=== PATIENT | female | born 1985 | race Caucasian/White ===

== ENCOUNTER 2019-09-26 17:43 | Emergency (ER) | payer MEDICAID, SELFPAY ==
[2019-09-26 17:47] VITALS: PULSE 75; RESP 18; TEMP 37.1; O2SAT 99; BMI 52.1
--- NOTE | 2019-09-26 19:47 | W.ED.DENTAL ---
HPI - Dental/Oral General: Chief complaint: Dental/Oral Stated complaint: dental pain Time Seen by Provider: 09/26/19 19:32 Source: patient Mode of arrival: ambulatory Limitations: no limitations History of Present Illness: HPI Narrative: 33-year-old female states she is had left lower molar pain over the last 2 to 3 days. States she supposed to see a dentist but had to cancel due to COVID. She states she has had slight swelling. States pain is a 8 out of 10. Denies any fever. Denies any difficulty swallowing. Associated symptoms: Denies fever(s) Review of Systems Const: Denies: fever(s), chills, body aches or change in appetite Eyes: Denies: blurry vision or eye discomfort ENMT: Reports: dental pain; Denies: throat pain Card: Denies: chest pain Resp: Denies: dyspnea GI: Denies: abdominal pain, nausea, vomiting or diarrhea : Denies: dysuria Musc: Denies: neck pain or back pain Skin/Breast: Denies: rash Neuro: Denies: headache(s) Psych: Denies: depression Archie/Lymph: Denies: easy bruising All/Imm: Denies: urticaria Physical Exam Const: COMMON NORMALS: no acute distress, patient oriented x3 and healthy appearing HENMT: COMMON NORMALS: normocephalic and atraumatic HEAD & SCALP: normocephalic and atraumatic OTHER: Tenderness over left lower molar with slight swelling with no obvious abscess. Patient has no trismus. Eye: COMMON NORMALS: Equal, round and reactive pupils present and EOMs intact bilaterally PUPIL: Yes Equal, round and reactive pupils present Neck/C-Spine: COMMON NORMALS: full ROM and supple Chest: COMMONS NORMALS: normal inspection of the chest and normal palpation of entire chest wall Resp: COMMON NORMALS: normal respiratory effort, No retractions, No use of accessory muscles and clear to auscultation bilaterally AUSCULTATION: clear to auscultation bilaterally Cardio: COMMON NORMALS: regular rate, regular rhythm and No murmurs present (Cardio) RATE: regular rate RHYTHM: regular rhythm GI: COMMON NORMALS: Normal to inspection, nondistended, normoactive bowel sounds present, Soft to palpation, non-tender and no masses PALPATION: Yes Soft to palpation Extremity: COMMON NORMALS: normal to inspection and full ROM Neuro: COMMON NORMALS: patient oriented x3, moves all extremities and no focal motor deficits Psych: COMMON NORMALS: mental status grossly normal, Normal thought process present and cooperative THOUGHT PROCESS: Normal thought process present Skin: COMMON NORMALS: no rashes or lesions noted and no wounds GENERAL SKIN EXAM: no rashes or lesions noted Course Vital Signs: Vital signs: Vital Signs Temperature 98.8 F 09/26/19 17:47 Pulse Rate 75 09/26/19 17:47 Respiratory Rate 18 09/26/19 17:47 Pulse Oximetry 99 09/26/19 17:47 MDM - Dental/Oral MDM Narrative: Medical decision making narrative: Presents with dental pain along with a dental infection. Patient has no signs of abscess or trismus. Patient is stable for discharge. Discharge Plan Discharge Patient Disposition: Home, Self-Care Clinical Impression: Dental caries Condition: Stable Prescriptions: New Keflex 500 mg capsule 500 mg PO Q6H 7 Days Qty: 28 RF: 0 Naprosyn 500 mg tablet 500 mg PO BID PRN (Reason: pain) Qty: 20 RF: 0 Discharge Orders: Discharge Order (Routine); Ordered 09/26/19 Ordered By: Flor Vale Referrals: Anila Dhaliwal FNP [Primary Care Provider] - 1-3 days Discharge Diet: Advance as tolerated Discharge Activity: Resume usual activity Patient Instructions: Dental Caries (ED) Coding Level of Care Code ED Supervisor [employer] Workers for Maria Victoria Calles
[2019-09-26] MEDS: HYDROcodone-acetaminophen 5-325 mg Tablet 1 TAB PO (19:55)
[2019-09-26 20:24] VITALS: BP 174/92; PULSE 84; RESP 18; O2SAT 98
== END 2019-09-26 20:02 | disposition home or self-care (01) ==
PROVIDERS: Emergency Provider Emergency Medicine; PCP Nurse Practitioner
DX: K02.9 Dental caries, unspecified (principal)
CPT/HCPCS: 12345; 99281; 99282

== ENCOUNTER → 2019-12-28 11:07 | Outpatient (BNVA) | payer MEDICAID, SELFPAY | PROVIDERS: PCP Nurse Practitioner; Visit Provider Obstetrics & Gynecology | DX: N73.0 Acute parametritis and pelvic cellulitis (principal) | CPT/HCPCS: 87081; 87491; 87591 ==

== ENCOUNTER → 2020-01-04 15:26 | Outpatient (BNVA) | payer MEDICAID, SELFPAY | PROVIDERS: PCP Nurse Practitioner; Visit Provider Obstetrics & Gynecology | DX: N83.201 Unspecified ovarian cyst, right side (principal); R10.2 Pelvic and perineal pain | CPT/HCPCS: 76830 ==

== ENCOUNTER → 2020-03-17 15:22 | Outpatient (BNVA) | payer MEDICAID, SELFPAY | PROVIDERS: PCP Nurse Practitioner; Visit Provider Obstetrics & Gynecology | DX: N88.8 Other specified noninflammatory disorders of cervix uteri (principal) | CPT/HCPCS: 76830 ==

== ENCOUNTER → 2020-05-08 14:34 | Outpatient (BNVA) | payer MEDICAID, SELFPAY | PROVIDERS: PCP Nurse Practitioner; Visit Provider Obstetrics & Gynecology | DX: Z20.822 Contact with and (suspected) exposure to COVID-19 (principal); R10.2 Pelvic and perineal pain | CPT/HCPCS: 87635 ==

== ENCOUNTER 2020-05-14 13:57 | Observation (INO) | payer MEDICAID, SELFPAY ==
[2020-05-12 12:16] VITALS: BMI 50.7
[2020-05-12 12:52] LABS: Add Urine Microscopic? NO
[2020-05-12 12:57] LABS: Basophils % 0.2 %; Eosinophils # 0.1 10^3/uL (0.0-0.8); Eosinophils % 1.1 %; Hemoglobin 13.4 g/dL (11.5-15.3); Lymphocytes # 3.3 10^3/uL (0.8-4.8); Lymphocytes % 26.6 %; Mean Corpuscular HGB Conc 32.7 g/dL (30.0-36.0); Mean Corpuscular Hemoglobin 30.3 pg (28.0-34.0); Mean Corpuscular Volume 92.8 fL (81-99); Monocytes # 0.7 10^3/uL (0.2-0.9); Monocytes % 5.6 %; Neutrophils # 8.11 10^3/uL (1.8-7.7); Neutrophils % 66.3 %; Nucleated Red Blood Cells % 0 %; Platelet Count 416 10^3/cmm (130-400); Red Blood Count 4.42 10^6/uL (4.1-5.3); Red Cell Distribution Width 12.3 % (12.1-15.1); White Blood Count 12.2 10^3/uL (4.0-10.0)
--- NOTE | 2020-05-12 12:57 | ANES.PREANE2 ---
Pre-Anesthetic Assessment Pre-Anesthetic Assessment: Height/Weight: Height 1.59 m Weight 128.82 kg Preop Diagnosis: Chronic pelvic pain, genital warts Proposed Procedure: Operation Date: 05/14/20 09:00 Proposed Procedures p Laparoscopic Assist Vaginal Hystectomy 01124 R10.2(Not Applicable) - Arnold Herrera MD Was Beta Juarez taken within 24 hours: N/A Social: Social History: Tobacco and No alcohol Exam: Pre-Anes Outpt Exam: alert, oriented x 3 and regular rate & rhythm Airway: Submandibular: WNL Cervical ROM: WNL MP: 2 Dentition: Chipped Additional comments: Very poor dentition, multiple missing and cracked Pulmonary: Pulmonary: COPD Metabolic: Metabolic: Morbid obesity Anesthetic Plan: ASA status: 3 Anesthesia: General Risk of > 500 ml blood loss (7ml/kg in children): No PFSH Anesthesia PFSH: Family History Mother Diabetes Cervical cancer Hypertension Grandmother Diabetes Heart disease maternal and paternal Hyperlipidemia maternal and paternal Thyroid condition paternal Breast cancer paternal great Stroke paternal and maternal Hypertension maternal and paternal Grandfather Diabetes maternal and paternal Heart disease maternal and paternal Hyperlipidemia maternal and paternal Hypertension maternal and paternal Father Heart disease Hyperlipidemia Hypertension Family/Other Diabetes paternal aunt Thyroid condition paternal aunt Cervical cancer maternal aunt Stroke paternal aunt Anesthesia complication maternal aunt Denies family history of Colon cancer Ovarian cancer Clotting disorder Bleeding disorder Uterine cancer Social History (Updated 05/12/20 @ 10:21 by Anamaria South RN) Smoking and tobacco status: current every day smoker cigarettes [ Other cigarette details: less than 1 ppd ] Alcohol intake: current Alcohol intake frequency: holidays/special occasions only Alcohol type: wine Substance/Drug Use: never Female Reproductive History: Date of last menstrual period: 05/02/20 Data Anesthesia CBC & Chem 7: 05/12/20 12:40 05/12/20 12:40 Other Labs: Laboratory Results - last 48 hr 05/12/20 12:40 WBC 12.2 H RBC 4.42 Hgb 13.4 Hct 41.0 MCV 92.8 MCH 30.3 MCHC 32.7 RDW 12.3 Plt Count 416 H MPV 10.0 Neut % (Auto) 66.3 Lymph % (Auto) 26.6 [facility] % (Auto) 5.6 Eos % (Auto) 1.1 Baso % (Auto) 0.2 Neut # (Auto) 8.11 H Lymph # (Auto) 3.3 [facility] # (Auto) 0.7 Eos # (Auto) 0.1 Baso # (Auto) 0.0 Nucleated RBC % (auto) 0 Nucleated RBCs # 0.0 Cardiac Studies: No Data to Display
[2020-05-12 13:21] LABS: Alanine Aminotransferase 46 U/L (0-33); Alkaline Phosphatase 71 IU/L (35-105); Anion Gap 12.5 (5-19); Aspartate Amino Transferase 27 U/L (0-32); Blood Urea Nitrogen 5 mg/dL (6-20); Calcium 8.9 mg/dL (8.5-10.5); Carbon Dioxide 27 mmol/L (22-29); Chloride 103 mmol/L (98-107); Creatinine Clr Calc Pharmacy 171.7692; Glomerular Filtration Rate 115.1 mL/min (90-130); Glucose 99 mg/dL (65-115); Osmolality Calculated 285 mOsm/kg (285-295); Potassium 3.5 mmol/L (3.5-5.1); Sodium 139 mmol/L (136-145); Total Bilirubin 0.4 mg/dL (0.15-1.2)
[2020-05-12 13:41] LABS: Bilirubin Urine Neg (Negative); Blood Urine Neg (Negative); Glucose Urine UA Norm (Normal); Ketones Urine Negative (Negative); Leukocyte Esterase Urine Negative (Negative); Nitrate Urine Negative (Negative); OR HCG Qualitative Urine Negative (Negative); Protein Urine Neg (Negative); Urine Appearance Clear (CLEAR); Urine Color Straw (Yellow); Urobilinogen Urine Norm (Negative); pH Urine 6.5 (5-7)
[2020-05-14] VITALS (19 sets, daily range): BP systolic 105–165; BP diastolic 47–98; PULSE 63–87; RESP 12–22; TEMP 35.9–36.9; O2SAT 89–100
[2020-05-14 09:20] LABS: OR HCG Qualitative Urine Negative (Negative)
[2020-05-14] MEDS: sodium chloride 0.9% 500 ML IV (09:43)
[2020-05-14] MEDS: scopolamine 1.5 Patch 1 PATCH TRANSDERMA (09:43)
--- NOTE | 2020-05-14 09:44 | P.ANESUD_ITS ---
Pre-Anesthetic Update Pre-Anesthetic Assessment: Date of Surgery/Procedure: 05/14/20 Preop Neelima gnosis: Chronic pelvic pain, genital warts Proposed Procedure: Operation Date: 05/14/20 10:25 Proposed Procedures p Laparoscopic Assist Vaginal Hystectomy 37993 R10.2(Not Applicable) - Arnold Herrera MD Any changes to Pre-Anesthetic Assessment?: No Last Intake: Intake Last Liquid Date 05/13/20 Last Liquid Time 21:30 Last Solid Date 05/13/20 Last Solid Time 20:00 Labs Last 48hrs: Laboratory Results - last 48 hr 05/12/20 05/12/20 05/12/20 12:30 12:30 12:40 WBC 12.2 H RBC 4.42 Hgb 13.4 Hct 41.0 MCV 92.8 MCH 30.3 MCHC 32.7 RDW 12.3 Plt Count 416 H MPV 10.0 Neut % (Auto) 66.3 Lymph % (Auto) 26.6 Cameron % (Auto) 5.6 Eos % (Auto) 1.1 Baso % (Auto) 0.2 Neut # (Auto) 8.11 H Lymph # (Auto) 3.3 Cameron # (Auto) 0.7 Eos # (Auto) 0.1 Baso # (Auto) 0.0 Nucleated RBC % (a uto) 0 Nucleated RBCs # 0.0 Sodium Potassium Chloride Carbon Dioxide Anion Gap BUN Creatinine GFR Calculation Glucose Calculated Osmolal ity Calcium Total Bilirubin AST ALT Alkaline Phosphata se Total Protein Albumin Globulin Urine Color Straw Urine Appearance Clear Urine pH 6.5 Ur Specific Gravit y 1.010 Urine Protein Neg Urine Glucose (UA) Norm Urine Ketones Negative Urine Blood Neg Urine Nitrate Negative Urine Bilirubin Neg Urine Urobilinogen Norm Ur Leukocyte Gretel ase Negative Urine HCG, Qual Negative Blood Type Rho(D) Type Antibody Screen 05/12/20 05/12/20 05/14/20 12:40 12:40 08:50 WBC RBC Hgb Hct MCV MCH MCHC RDW Plt Count MPV Neut % (Auto) Lymph % (Auto) Cameron % (Auto) Eos % (Auto) Baso % (Auto) Neut # (Auto) Lymph # (Auto) Cameron # (Auto) Eos # (Auto) Baso # (Auto) Nucleated RBC % (a uto) Nucleated RBCs # Sodium 139 Potassium 3.5 Chloride 103 Carbon Dioxide 27 Anion Gap 12.5 BUN 5 L Creatinine 0.6 GFR Calculation 115.1 Glucose 99 Calculated Osmolal ity 285 Calcium 8.9 Total Bilirubin 0.4 AST 27 ALT 46 H Alkaline Phosphata se 71 Total Protein 7.0 Albumin 4.0 Globulin 3.0 Urine Color Urine Appearance Urine pH Ur Specific Gravit y Urine Protein Urine Glucose (UA) Urine Ketones Urine Blood Urine Nitrate Urine Bilirubin Urine Urobilinogen Ur Leukocyte Gretel ase Urine HCG, Qual Negative Blood Type O Negative Rho(D) Type Negative Antibody Screen Negative Vitals: Temperature 98.4 F 05/14/20 09:22 Temperature Source Temporal Artery S can 05/14/20 09:22 Pulse Rate 87 05/14/20 09:22 Respiratory Rate 18 05/14/20 09:22 Blood Pressure 140/94 05/14/20 09:22 Blood Pressure Gladys n 109 05/14/20 09:22 Pulse Oximetry 98 05/14/20 09:22 Oxygen Delivery Me thod 05/14/20 09:22 Exam: Pre-Anes Outpt Exam: alert, oriented x 3, clear to auscultation bilaterally and regular rate & rhythm Cardiac Studies: No Data to Display
--- NOTE | 2020-05-14 10:49 | W.PM.OPSUD ---
Surgery/Procedure H&P Update DATE OF PROCEDURE: May 14, 2020 DATE H&P PERFORMED: 05/12/20 H&P UPDATE INFORMATION: I have reviewed H&P completed within last 30 days, I have examined patient prior to procedure and No changes to prior documentation PREOP DIAGNOSIS: Chronic pelvic pain, genital warts PLANNED PROCEDURE: Operation Date: 05/14/20 10:25 Proposed Procedures p Laparoscopic Assist Vaginal Hystectomy 58372 R10.2(Not Applicable) - Arnold Herrera MD
[2020-05-14] MEDS: ceFOXitin 2,000 MG in sodium chloride 0.9% (plus) 50 ML 100 MG IV (10:53)
--- NOTE | 2020-05-14 13:50 | PM.OP ---
Operative Report Date of procedure: May 14, 2020 Pre-op Diagnosis: Chronic pelvic pain, genital warts Post-op diagnosis: same Procedure Done: Laparoscopic-assisted vaginal hysterectomy Specimens removed/disposition: Uterus Surgeon: Arnold Herrera MD Anesthesia: General Estimated blood loss (mL): 600 IV fluids (mL): 1,100 Urine output (mL): 500 Complications: Bleeding Condition: stable Disposition: PACU Brief History: 34-year-old female with a history of chronic pelvic pain unresponsive to medical management Procedure: After discussing informed consent again, the patient was taken to the operating room where general anesthesia was administered. She was placed in the dorsal lithotomy position in low stirrups and prepped and draped in sterile fashion. Pre-Procedure Time-Out verifying the correct patient identity, correct procedure verified with consent, correct site and side, correct patient position, availability of correct implants and any special equipment or requirements was performed and acknowledge by the OR team. After the initial preparation, the procedure commenced at the vagina. With a Bookwalter vaginal retractor was place to visualize the cervix; the anterior and posterior lips of the cervix were separately grasped and clamped with court tooth tenaculum. The cervix was then dilated to a #6 hegar dilator and a uterine manipulator within the uterine cavity for manipulation purposes being careful not to puncture the uterus. A See catheter was placed in the bladder. Attention was then turned to the abdomen. The umbilical region was infiltrated with 0.5% Marcaine with epinephrine. Following infiltration with Marcaine, an intraumbilical incision was made and the Verres needle was gently advanced taking care to feel for the typical sensation of penetrating the peritoneum. With CO2 infiltration, an opening pressure of 5 mmHg was noted, and following this, a pneumoperitoneum of 15 mmHg was created. A 5 mm Optiview trocar was then passed through the same incision under direct visualization. Trocar was removed and the laparoscope was then inserted through the trocar sleeve. Visualization of the peritoneal cavity was then obtained and a brief inspection did not reveal any signs of complications from entry. Under direct observation, a second incision was made 3 cm above the symphysis pubis, and a 5 mm trocar and sleeve were admitted into the abdomen under direct, laparoscopic visualization, 5mm flank ports were then placed laterally on both the right and left sides taking care to respect anatomical landmarks and vessels without complication. Once the placement of the ports was complete, the actual laparoscopic procedure began. Beginning on the right side and distally along the length of the fallopian tube, the mesosalpinx was exposed by lifting the tube/ovary up towards the anterior abdominal wall. The mesosalpinx was then sequentially, clamped, ligated, and cut using the Voyant device working alongside the length of the tube and towards the cornua. Once the level of the cornua was reached attention was then turned to the other side. The same process was repeated on the left, sequentially clamping, sealing/ligating, and cutting the mesosalpinx being sure to not injure the adjacent ovarian tissue or other surrounding structures. The round ligament was then clamped, sealed/ligated and cut with the Voyant device. Following this, the anterior leaf of the broad ligament was then taken down on the left side, dissecting down towards the peritoneal reflection at the base of the bladder and adjacent to the cervix. The same process was then repeated on the left side such that both sides met and the anterior leaflet had been appropriately skeletonized. To ensure excellent hemostasis prior to further manipulation, the pedicles of the cardinal ligament was then clamped sealed/ligated and divided on each side using the Voyant device. Attention was then turned to the vaginal aspect of the surgery. The See catheter was clamped. A Bookwalter vaginal retractor was placed in the vagina and the uterine manipulator was removed. The tenaculum was repositioned anteriorly and posteriorly. A circumferential incision was made at the cervical vaginal reflection using cautery. This was undermined first anteriorly and a colpotomy made without difficulty. This was then repeated posteriorly and a similar colpotomy made. Mohinder retractors were then placed into each of these incisions. Beginning first on the patient's left, the uterosacral and cardinal ligament was clamped, sealed, divided, and suture ligated. Two bites were required to reach the previous dissection margin of the left side. The same process was then repeated on the patient's right hand side, at which point, the specimen was completely freed. Once the sutures had been placed and the pedicles secured, the uterus was removed transvaginally without difficulty. All pedicles were inspected and hemostasis was confirmed. The vaginal vault was then oversewn with a running locking Vicryl suture, securing first the posterior edge of the cuff followed by the anterior edge. Good hemostasis was obtained. Two [id number] sutures were then placed across the vaginal vault to close it. Once these had been tied off, all sutures were trimmed; a wet sponge was placed in the vagina to pack it off while attention was again turned back to the abdomen. All instruments were removed from the vagina at this time. Using the laparoscopic irrigation device, the abdomen was carefully irrigated and inspected to ensure complete hemostasis. Once the entire abdomen was inspected, the water was suctioned and the instruments carefully removed. The ports were then removed under direct visualization being sure to note hemostasis of the port sites on removal. The incisions were then closed with interrupted Monocryl sutures and Dermabond. The patient tolerated the procedure well, anesthesia reversed, and the patient was taken to the recovery room in stable condition. All sponges, instruments, and sharps were counted and correct x 3.
[2020-05-14] MEDS: fentaNYL 50 mcg/mL INJ 2mL IVP ×2 (14:10→14:20)
[2020-05-14] MEDS: ondansetron 2 mg/ML SDV 2 mL 4 MG IVP ×2 (14:16→14:23)
[2020-05-14] MEDS: metoclopramide 5 mg/mL SDV 2 mL 10 MG IVP (14:35)
--- NOTE | 2020-05-14 14:56 | ANE.PACU2 ---
Inpatient post-anesthesia follow up: Airway intact: Yes Vital signs: Temperature 97.8 F Pulse Rate 74 Respiratory Rate 17 Blood Pressure 129/89 Pulse Oximetry 94 Oxygen Delivery Me thod Room Air Oxygen Flow Rate 8 Fraction of Inspir ed Oxygen Hydration adequate: Yes Nausea and vomiting: No Pain level: 2 Mental status: Baseline
[2020-05-14] MEDS: ketorolac 30 mg/mL INJ IVP ×2 (15:26→21:07)
[2020-05-14] MEDS: dextrose 5%-lactated ringers 1,000 ML 125 ML IV ×2 (15:26→23:34)
[2020-05-14] MEDS: docusate sodium 100 mg Capsule PO (17:53)
[2020-05-14] MEDS: HYDROcodone-acetaminophen 5-325 mg Tablet PO (18:02)
--- NOTE | 2020-05-14 21:00 | PC.NURSE ---
Patient stated to this nurse, ' I think I passed gas in my sleep so I should be able to eat something now. Explained to patient that because she is not really sure and she still has hypoactive bowel sounds this nurse did not feel comfortable giving her anything but clear liquids still. Patient states, Well I must have passed gas because my shoulder does not hurt anymore. Explained to patient that she was given pain medication and so he shoulder may not hurt for that reason and that this nurse would rather wait until patient is fully awake and able to be sure she passed gas before we start eating. Patient verbalized understanding.
[2020-05-15] MEDS: HYDROcodone-acetaminophen 5-325 mg Tablet PO ×2 (01:24→12:19)
[2020-05-15] MEDS: ketorolac 30 mg/mL INJ IVP ×2 (03:59→10:36)
[2020-05-15 04:00] VITALS: BP 119/81; PULSE 68; RESP 18; TEMP 36.6; O2SAT 93
[2020-05-15 05:31] LABS: Hematocrit 33.4 % (37.0-47.0); Hemoglobin 10.7 g/dL (11.5-15.3); Mean Corpuscular Hemoglobin 30.5 pg (28.0-34.0); Mean Corpuscular Volume 95.2 fL (81-99); Mean Platelet Volume 10.4 fL (7.4-10.4); Platelet Count 354 10^3/cmm (130-400); Red Blood Count 3.51 10^6/uL (4.1-5.3); Red Cell Distribution Width 12.6 % (12.1-15.1)
--- NOTE | 2020-05-15 06:59 | PC.NURSE ---
Report to Santa SINGH at this time.
[2020-05-15 07:28] VITALS: BP 111/68; PULSE 71; RESP 16; TEMP 36.8; O2SAT 92
--- NOTE | 2020-05-15 10:20 | PM.OBGYDC ---
Discharge Providers FIELD OPERATIONS COORDINATOR Date of Admission: 05/14/20 13:57 Date of Discharge: 05/15/20 Attending Provider at Admission: Arnold Herrera MD Attending Provider at Discharge: Arnold Herrera MD Primary Care Provider: SUZANNE Ge Diagnoses at Discharge Discharge Diagnosis (1) Chronic pelvic pain in female: Status: Acute Reason for Visit Reason for Visit: chronic pelvic pain Hospital Course Hospital Course Ms. Arellano is a 34 y/o with an LMP of 05/02/2020 with a history of chronic pelvic pain unresponsive to medical management. Admitted for scheduled total vaginal hysterectomy. The procedure was performed without complications. Overnight observation was uneventful. Ambulating without difficulty. Tolerating diet well. Voiding output adequate. She is afebrile and hemodynamically stable. Physical Exam Narrative: EXAM NARRATIVE: GA: Alert and oriented ?3. HEENT: WNL. Heart: Regular rate and rhythm. Lungs: Clear to auscultation bilaterally. Abdomen: Bowel sounds present, nontender, minimal tenderness, incision clean and dry, no redness, pain or edema. RADIATOR CORE TESTER: No bleeding. Extremities: No edema, no cyanosis, no calves pain. Urinary Catheter Management^: See: Cath Placed During This Visit: yes Urinary Catheter Date of Insertion: 05/14/20 Urinary Catheter Time of Insertion: 10:53 Discharge Data Data Completed and Pending: Pending at discharge Category Date Time Status ES surgery / GI i mages Routine Exams 05/14/20 10:35 Taken Pathology: Surgic al [PTH] Routine Pth 05/14/20 14:02 Received Labs from last 24 hours 05/15/20 04:39 WBC 13.0 H RBC 3.51 L Hgb 10.7 L Hct 33.4 L MCV 95.2 MCH 30.5 MCHC 32.0 RDW 12.6 Plt Count 354 MPV 10.4 Vitals: Last Vital Signs Temp 98.3 F 05/15/20 07:28 Pulse 71 05/15/20 07:28 Resp 16 05/15/20 07:28 BP 111/68 05/15/20 07:28 Pulse Ox 92 05/15/20 07:28 Discharge Plan Discharge Patient Disposition: Home Condition: Stable Prescriptions: New hydrocodone-acetaminophen [[place]] 5-325 mg tablet 1 tab PO Q4H PRN (Reason: pain) Qty: 30 RF: 0 docusate sodium [Colace] 100 mg capsule 100 mg PO BID Qty: 30 RF: 0 ferrous sulfate 325 mg (65 mg iron) tablet 325 mg PO BID Qty: 60 RF: 0 Continued albuterol sulfate [ProAir HFA] 90 mcg/actuation HFA aerosol inhaler 2 puff inhalation Q6H PRN (Reason: shortness of breath or wheezing) Qty: 8.5 RF: 0 cyclobenzaprine 10 mg tablet 10 mg PO TID PRN (Reason: Muscle Spasm) RF: 0 ibuprofen 800 mg tablet 800 mg PO TID PRN (Reason: Pelvic pain) RF: 0 Discharge Orders: Discharge Order (Routine); Ordered 05/15/20 Ordered By: Arnold Herrera Referrals: Arnold Herrera MD [Physician] - 2 weeks Discharge Diet: Usual diet Discharge Activity: Increase activity as tolerated Patient Instructions: Laparoscopically Assisted Vaginal Hysterectomy (DC) Activity Restrictions/Additional Instructions: 1. Please call [facility] on next working day to make your post-operative appointment in 2 weeks. 2. Please stay home until you come back to the clinic on first post-operative check up. 3. Please follow instructions on your medications CAREFULLY. 4. If you have abdominal incision, do not cover it unless dressing is necessary because of drainage. OK to shower, but avoid bath. Leave steri-strips until they fall off. If they are still on one week after surgery, you may remove them. 5. If you had vaginal surgery, your doctor may instruct you to take SITZ bath. 6. Yellow, blood tinged odorous vaginal discharge is usually normal after hysterectomy or vaginal surgeries. 7. No sexual intercourse, tampons, or douches until you are completely released from the post-operative care. 8. Avoid constipation by eating right and maybe using some Metamucil or Milk of Magnesia. 9. All prescription refills are given during the working hours. Please do no wait till it runs out. Call the clinic at [phone] before your medication runs out. The clinic will get in touch with your doctor to prescribe medications if necessary. 10. Please remain within 40 mile radius from our hospital because emergencies do happen now and then during the post-operative period. 11. If you have stairs at home, take one step at a time slowly and minimize the number of trips. It helps to stay in one floor for the next few days. No lifting except what you can lift by one hand until you are released from the post-operative care. 12. Driving is discouraged until you are well healed. It may be 3-4 weeks before you feel strong enough to drive. You should be able to turn and look through the rear window without pain and you should be able to push the brake pedal very hard without pain before you drive. No fast rules, but SAFETY should be your primary concern. DO NOT drive if you are on sedating medications such as narcotics. 13. Call the clinic (during working hours) to make urgent appointment or go to the Emergency room, if any of the following occurs: i. Vaginal bleeding becomes heavy, more than a period. ii. Incision becomes red and sore, or drains pus. iii. Your temperature is over 100.4 or you have chill. iv. IV site becomes red and swollen (a little ``knot?? is usually OK) v. Persistent nausea and vomiting vi. Persistent constipation or diarrhea vii. Rash or allergic reaction to medications. Discharge Attestations FIELD OPERATIONS COORDINATOR Time Spent in Discharge Care*: greater than 30 min Coding Level of Care Code Acute Casing Material Weigher for Maria Victoria Calles Diagnoses Chronic pelvic pain in female R10.2; G89.29
--- NOTE | 2020-05-15 10:28 | PC.CHAP ---
Pastoral Care Encounter/Spiritual Assessment Type of Contact [] Declined gum puller visit [] Patient/Family/Request visit [] Outpatient visit [] Follow-up visit [] Physician referral [] Code/Alert [x] Routine visit [] Staff referral [] Actively dying [] Patient sleeping [] Family support [] [] Out of room [] Palliative care [] [x] Receiving care in room [] Pre-surgical visit [] Trauma [] Long length of stay [] ICU visit [] Other: Relational/Emotional Strength [x] Patient feels connected with others/family/visitors/staff [] Distress [] Loneliness/isolation [] Abandonment Spirituality of Patient [x] Person of Kamini [] Attends Pentecostalism of their Kamini [x] Believes in Prayer [] Reads Bible or Baptism materials [] There are Spiritual issues to be addressed Record Press Operator Interventions [x] Prayer [x] Active listening [x] Non-anxious presence [x] Spiritual/emotional support [] Crisis/trauma care [x] Spiritual counseling [] Bereavement support [] Provided bereavement packet [] Provided Bible/devotional materials [] Provided toy/stuffed animal, coloring book to patient or family member [] Provided Communion [] Anointing/[place] [] Salvation [x] Completed spiritual assessment [] Other: Impact on Illness or Injury [] Angry [] Fearful [x] Anxious [] Often cries [] Exhaustion [] Unable to work [] Unable to attend episcopalian [] Unable to walk/stand [] Unable to read [] Unable to drive [] Unable to eat/drink [] Unable to sleep [] Unable to be with family [] Patient intubated [] Other: Summary had a hysterectomy surgery, going home, has agood attitude, family Time spent with patient 10 mins
[2020-05-15] MEDS: docusate sodium 100 mg Capsule PO (10:36)
[2020-05-15 11:02] VITALS: BP 142/81; PULSE 74; RESP 17; TEMP 36.3; O2SAT 96
--- NOTE | 2020-05-15 13:19 | PC.NURSE ---
PTS FERRER WAS REMOVED AROUND 1000 THIS MORNING. PT HAD ONE SMALL VOID ABOUT TWO HOURS AFTER THE REMOVAL OF THE FERRER. THE DOCTOR PUT IN DISCHARGE ORDERS FOR THIS PT. PT'S IV WAS REMOVED; IV WAS INTACT & THE PT TOLERATED REMOVAL WELL. THE DISCHARGE PACKET AND APPOINTMENTS WERE GONE OVER WITH THE PT. ALL QUESTIONS WERE ANSWERED. PT DISCHARGED WITH MINIMAL COMPLAINTS OF PAIN; 05/14.
[2020-05-15 13:26] VITALS: BP 142/81; PULSE 74; RESP 17; TEMP 36.3; O2SAT 96
== END 2020-05-15 12:45 | disposition home or self-care (01) ==
LOC: MEDSURG 13:58
PROVIDERS: Admitting Provider Obstetrics & Gynecology; PCP Nurse Practitioner; Visit Provider Obstetrics & Gynecology
PROC: 0UT9FZZ Resection of Uterus, Via Natural or Artificial Opening With Percutaneous Endoscopic Assistance (ICD-10-PCS; CPT 58550; principal; 2020-05-14 10:15)
PROC: 0TJB8ZZ Inspection of Bladder, Via Natural or Artificial Opening Endoscopic (ICD-10-PCS; CPT 52000; 2020-05-14 10:15)
DX: R10.2 Pelvic and perineal pain (principal); B07.8 Other viral warts; J44.9 Chronic obstructive pulmonary disease, unspecified; E66.01 Morbid (severe) obesity due to excess calories; Z68.43 Body mass index [BMI] 50.0-59.9, adult; F17.210 Nicotine dependence, cigarettes, uncomplicated
CPT/HCPCS: 58550; 36415; 80053; 81003; 84703; 85025; 85027; 86850; 86900; 88307; G0378; J0694; J1170; J1885; J2405; J2710; J2765; J3010; J3490; J7040

== ENCOUNTER → 2022-04-13 16:02 | Outpatient (BNVA) | payer MEDICAID, SELFPAY | PROVIDERS: Visit Provider Nurse Practitioner | DX: S60.221A Contusion of right hand, initial encounter (principal); X58.XXXA Exposure to other specified factors, initial encounter | CPT/HCPCS: 73130 ==

== ENCOUNTER 2022-04-25 15:54 | Emergency (ER) | payer MEDICAID, SELFPAY ==
[2022-04-25 15:59] VITALS: BP 157/114; PULSE 85; RESP 15; TEMP 36.5; O2SAT 96; BMI 46.4
--- NOTE | 2022-04-25 17:15 | ED_ITS ---
HPI - Burn/Smoke Inhalation General: Chief complaint: Burn/Smoke Inhalation Stated complaint: burn to Right arm Time Seen by Provider: 04/25/22 16:06 History of Present Illness: 36-year-old lady presenting due to arm burn. She reports a few days ago being at work and had cooking grease that splashed onto her arm. There was deep burn with blistering and tissue desquamation with continued erythema and pain and central eschar. She denies other areas of injury. She was mostly concerned as work wants her to be around the skin. Perhaps mild increased erythema. Denies other signs systemic illness. Pain controlled with yfbr-gmm-fqavzpx medications no other specific changes in h ealth, exacerbating, or alleviating factors identified. Onset (ago): day(s) Type of Exposure: hot liquid Place: industrial (Work) Location - Extremities: Right: forearm Severity: moderate Associated symptoms: Reports no associated symptoms Review of Systems General: Reports: 10 or more systems reviewed and unremarkable except in HPI and below PFSH ED PFSH: Medical History Aftercare following surgery of the genitourinary system History of genital warts 07/05/2018- per Dr. Herrera at [facility], pathology- hyperkeratotic, papillomatous epithelium, consistent with condylomata Surgical History H/O arthroscopy of right knee H/O section x3 H/O dilation and curettage x3 H/O tubal ligation 02/03/2016- Performed after per patient by Dr. Mccloud at [facility] in [place], [place]. S/P cholecystectomy 2007 S/P hysterectomy 05/14/2020- laparoscopic-assisted vaginal hysterectomy performed by Dr. Herrera at [facility] S/P tonsillectomy Family History Mother Diabetes Cervical cancer Hypertension Grandmother Diabetes Heart disease maternal and paternal Hyperlipidemia maternal and paternal Thyroid condition paternal Breast cancer paternal great Stroke paternal and maternal Hypertension maternal and paternal Grandfather Diabetes maternal and paternal Heart disease maternal and paternal Hyperlipidemia maternal and paternal Hypertension maternal and paternal Father Heart disease Hyperlipidemia Hypertension Family/Other Diabetes paternal aunt Thyroid condition paternal aunt Cervical cancer maternal aunt Stroke paternal aunt Anesthesia complication maternal aunt Denies family history of Colon cancer Ovarian cancer Clotting disorder Bleeding disorder Uterine cancer Social History Smoking and tobacco status: current every day smoker cigarettes [ Other cigarette details: less than 1 ppd] Alcohol intake: current Alcohol intake frequency: holidays/special occasions only Alcohol type: wine Physical Exam Const: COMMON NORMALS: alert GENERAL APPEARANCE: cooperative and well developed HENMT: COMMON NORMALS: normocephalic and atraumatic HEAD & SCALP: normocephalic and atraumatic Eye: COMMON NORMALS: conjunctivae normal CONJUNCTIVA: Yes conjunctivae normal SCLERA: sclerae normal Neck/C-Spine: COMMON NORMALS: supple GENERAL: Yes trachea midline Resp: COMMON NORMALS: normal respiratory effort EFFORT & INSPECTION: Yes able to speak in complete sentences Cardio: COMMON NORMALS: regular rate and regular rhythm RATE: regular rate RHYTHM: regular rhythm Extremity: NARRATIVE EXTREMITY EXAM: See skin GENERAL: Yes normal exam except as noted and No edema Neuro: COMMON NORMALS: moves all extremities SENSORIUM/ORIENTATION: Yes alert and No Orientation impaired Psych: COMMON NORMALS: mental status grossly normal and Normal thought process present THOUGHT PROCESS: Normal thought process present Skin: NARRATIVE SKIN EXAM: Approximately 5 cm x 3 cm area of concern with oblique shape concerning for burn. There is a smaller 3 cm x 2 cm central area of eschar. Mild tenderness to palpation. Course Vital Signs: Vital signs: Vital Signs Temperature 97.7 F 04/25/22 15:59 Pulse Rate 88 04/25/22 17:49 Respiratory Rate 16 04/25/22 17:49 Blood Pressure 157/114 04/25/22 15:59 Pulse Oximetry 97 04/25/22 17:49 Oxygen Delivery Me thod 04/25/22 15:59 MDM - Burn/Smoke Inhalation Medical Decision Making 36-year-old lady presenting with burn that occurred at work secondary to hot grease. Certainly the eschar formation is concerning for deep tissue burn however we are few days out so we will continue outpatient management and area will likely scar. Patient does report some drainage and perhaps increased redness. There is no streaking or other signs systemic illness. I will prescribe antibiotics. Work restrictions given. The results of ED evaluation were discussed with the patient including prescriptions and/or symptomatic cares (if applicable) including appropriate and responsible use, followup plan, and return precautions. The patient verbalized understanding and felt safe for discharge. Medical Records I reviewed the patient's medical records. Lab Data I reviewed the patient's lab results. Discharge Plan Discharge Patient Disposition: Home Clinical Impression: Burn of forearm, right, third degree Condition: Stable Prescriptions: No Action albuterol sulfate [ProAir HFA] 90 mcg/actuation HFA aerosol inhaler 2 puff inhalation Q6H PRN (Reason: shortness of breath or wheezing) Qty: 8.5 0RF cyclobenzaprine 10 mg tablet 10 mg PO TID PRN (Reason: Muscle Spasm) ibuprofen 800 mg tablet 800 mg PO TID PRN (Reason: Pelvic pain) oxycodone 5 mg capsule 5 mg PO BID PRN hydrocodone-acetaminophen 5-325 mg tablet 1 tab PO BID PRN sulfamethoxazole-trimethoprim [Bactrim DS] 800-160 mg tablet 1 tab PO BID 10 Days Qty: 20 0RF ferrous sulfate 325 mg (65 mg iron) tablet 325 mg PO BID Qty: 60 0RF Colace 100 mg capsule 100 mg PO BID Qty: 30 0RF Discharge Orders: Discharge ED (Routine); Ordered 04/25/22 Ordered By: Yusef Man Discharge Diet: Usual diet Discharge Activity: Limit activity as instructed Patient Instructions: Third-Degree Burn (ED) Activity Restrictions/Additional Instructions: Thank you for visiting the emergency department. You were seen and evaluated for burn. Based on exam there was likely third-degree area of burn with eschar formation. Given drainage you will be treated with antibiotics. Please keep the area clean and dry. You may use pusz-gcm-etpmtst medications such as acetaminophen and ibuprofen for pain however please do not exceed the daily recommended dosage as listed on the packaging and please keep in mind that many namebrand medications contain the same active ingredients. Please avoid these medications if previously instructed to do so by another physician due to other underlying medical condition. Please follow-up with occupational health. Return to the emergency department for evidence of worsening infection or anything else that you are concerned about and feel needs emergency department evaluation. Stand Alone Forms: Work/School Release Coding Level of Care Code ED Formal Service Waiter for Maria Victoria Calles
[2022-04-25 17:49] VITALS: PULSE 88; RESP 16; O2SAT 97
== END 2022-04-25 17:50 | disposition home or self-care (01) ==
PROVIDERS: Emergency Provider Emergency Medicine
DX: T22.311A Burn of third degree of right forearm, initial encounter (principal); X10.2XXA Contact with fats and cooking oils, initial encounter; F17.210 Nicotine dependence, cigarettes, uncomplicated; Y99.0 Civilian activity done for income or pay
CPT/HCPCS: 99282

== ENCOUNTER 2023-06-22 12:08 | Emergency (ER) | payer MEDICAID, SELFPAY ==
[2023-06-22 12:11] VITALS: BP 168/119; PULSE 77; RESP 16; TEMP 36.8; O2SAT 94
--- NOTE | 2023-06-22 12:14 | ECG_ITS ---
[facility] Date: 2023-06-22 Pat Name: Laci Arellano Department: Room: Gender: Female Soil Specialist: : 1985 Requested By: Flor Vale Order Number: [id number] Jose MD: Abdirahman Brown M.D. Measurements Intervals [place] Rate: 79 P: 49 MT: 148 QRS: 11 QRSD: 94 T: 46 QT: 378 QTc: 434 Interpretive Statements SINUS RHYTHM POSSIBLE ANTERIOR MYOCARDIAL INFARCTION , OF INDETERMINATE AGE [30 ms Q WAVE IN V3/V4, OR R < 0.2 mV IN V4] Compared to ECG 06/06/2014 16:42:13 Myocardial infarct finding now present Sinus bradycardia no longer present Electronically Signed On 06-22-2023 15:27:24 CDT by Abdirhaman Brown M.D. [email or web address]
--- NOTE | 2023-06-22 12:36 | ED_ITS ---
HPI - Recheck/Abnormal Lab/Rx 2 General: Chief Complaint: Recheck/Abnormal Lab/Rx Stated Complaint: elevated bp Time Seen by Provider: 06/22/23 12:31 Source: patient Mode of arrival: ambulatory Limitations: no limitations History of Present Illness: 37-year-old female states she has had a migraine headache for the last 2 to 3 days. She has had a history of migraines and this feels similar she denies any severe headache she rates it a 5 out of 10 began gradually states she is concerned she had some high blood pressure states she does get hypertensive with her headaches she denies any chest pain denies any vomiting denies any fever Review of Systems 2 Const: Denies: fever(s), chills, body aches or change in appetite ENMT: Denies: throat pain or dental pain Card: Denies: chest pain Resp: Denies: dyspnea GI: Denies: abdominal pain, nausea, vomiting or diarrhea Musc: Denies: neck pain or back pain Skin/Breast: Denies: rash Neuro: Reports: headache(s) PFSH ED 2 PFSH: Medical History Psychiatric care Chronic posttraumatic stress syndrome Delete, added in error History of genital warts 07/05/2018- per Dr. Herrera at [facility], pathology- hyperkeratotic, papillomatous epithelium, consistent with condylomata Aftercare following surgery of the genitourinary system Surgical History H/O arthroscopy of right knee H/O section x3 H/O dilation and curettage x3 S/P cholecystectomy 2007 H/O tubal ligation 02/03/2016- Performed after per patient by Dr. Mccloud at [facility] in [place], [place]. S/P tonsillectomy S/P hysterectomy 05/14/2020- laparoscopic-assisted vaginal hysterectomy performed by Dr. Herrera at [facility] Family History Mother Diabetes Cervical cancer Hypertension Grandmother Diabetes Heart disease maternal and paternal Hyperlipidemia maternal and paternal Thyroid disease paternal Breast cancer paternal great Stroke paternal and maternal Hypertension maternal and paternal Grandfather Diabetes maternal and paternal Heart disease maternal and paternal Hyperlipidemia maternal and paternal Hypertension maternal and paternal Father Heart disease Hyperlipidemia Hypertension Family/Other Diabetes paternal aunt Thyroid disease paternal aunt Cervical cancer maternal aunt Stroke paternal aunt Anesthesia complication maternal aunt Denies family history of Colon cancer Ovarian cancer Clotting disorder Bleeding disorder Uterine cancer Social History (Updated 06/22/23 @ 10:10 by Jessica Capone RN) Smoking and tobacco/nicotine status: current every day tobacco/nicotine user cigarettes Packs smoked per day: 10 Years cigarettes smoked: 20 [ Other cigarette details: less than 1 ppd] and e-cigarettes E-Cigarette Details: e- cigarette and with nicotine E-cig/vape details: disposible Quit status (tobacco/nicotine): considering quitting Second hand smoke exposure: Yes Alcohol intake: current Alcohol intake frequency: holidays/special occasions only Alcohol type: wine and hard liquor Substance/Drug Use: never Adopted: No Caregiver/support person: No Lives independently: Yes Household members: significant other and children Housing: Manufactured/Mobile home Marital status: Life Partner Number of children: 4 Number of grandchildren: 0 Highest education level completed: Some College, No Degree service: No Current occupational status: employed Current occupation: personal fitness manager Current occupational exposures/hazards: No Pets and animals: Yes Pets & animals: cat(s), dog(s), snake(s) and turtle(s) Pets & animal details: bearSocialSmack Leisure activites: reading Sexually active: Yes Do you think of yourself as: Straight/Heterosexual Current gender identity: Female Kamini/Tenriism: None Special kamini needs: No Agree to transfusion: Yes Female Reproductive History: Para: 4 Spontaneous abortions: Yes (X2) Physical Exam 2 Const: COMMON NORMALS: no acute distress, patient oriented x3 and healthy appearing HENMT: COMMON NORMALS: normocephalic and atraumatic HEAD & SCALP: n ormocephalic and atraumatic Eye: COMMON NORMALS: Equal, round and reactive pupils present and EOMs intact bilaterally PUPIL: Yes Equal, round and reactive pupils present Neck/C-Spine: COMMON NORMALS: full ROM and supple Chest: COMMONS NORMALS: normal inspection of the chest Resp: COMMON NORMALS: normal respiratory effort, No retractions, No use of accessory muscles and clear to auscultation bilaterally AUSCULTATION: clear to auscultation bilaterally Cardio: COMMON NORMALS: regular rate, regular rhythm and No murmurs present (Cardio) RATE: regular rate RHYTHM: regular rhythm Extremity: COMMON NORMALS: normal to inspection and full ROM Neuro: COMMON NORMALS: patient oriented x3, moves all extremities and no focal motor deficits Psych: COMMON NORMALS: mental status grossly normal, Normal thought process present and cooperative THOUGHT PROCESS: Normal thought process present Skin: COMMON NORMALS: no rashes or lesions noted and no wounds GENERAL SKIN EXAM: no rashes or lesions noted Course 2 Vital Signs: Vital signs: Vital Signs Temperature 98.3 F 06/22/23 12:11 Pulse Rate 59 L 06/22/23 13:52 Respiratory Rate 17 06/22/23 13:52 Blood Pressure 143/93 06/22/23 13:52 Pulse Oximetry 95 06/22/23 13:52 Oxygen Delivery Me thod Room Air 06/22/23 12:11 MDM - Recheck/Abnormal Lab/Rx Medical Decision Making Patient presents here with a headaches likely migraine headache she had previous migraine headaches her headache resolved here with treatment her blood pressure here is improved as well with her headache improving. I did inform her she needs to take a log of her blood pressure over the next week at home follow-up with her PCP she has no signs of meningitis or subarachnoid hemorrhage she is follow-up return if worsening. Lab Data 06/22/23 13:18 06/22/23 13:18 Laboratory Results WBC 9.93 10^3/uL (3.29-11.43) 06/22/23 13:18 RBC 4.67 10^6/uL (3.85-5.65) 06/22/23 13:18 Hgb 14.30 g/dL (11.27-16.99) 06/22/23 13:18 Hct 43.6 % (36-47) 06/22/23 13:18 MCV 93.4 fl (85-98) 06/22/23 13:18 MCH 30.6 pg (27-33) 06/22/23 13:18 MCHC 32.8 g/dL (30-55) 06/22/23 13:18 RDW 12.4 % (12.1-15.1) 06/22/23 13:18 Plt Count 362 10^3/cmm (157-399) 06/22/23 13:18 MPV 10.2 fL (7.4-10.4) 06/22/23 13:18 Neut % (Auto) 64.8 % 06/22/23 13:18 Lymph % (Auto) 24.8 % 06/22/23 13:18 [place] % (Auto) 8.6 % 06/22/23 13:18 Eos % (Auto) 1.3 % 06/22/23 13:18 Baso % (Auto) 0.2 % 06/22/23 13:18 Neut # (Auto) 6.44 10^3/uL (1.8-7.7) 06/22/23 13:18 Lymph # (Auto) 2.5 10^3/uL (0.8-4.8) 06/22/23 13:18 [place] # (Auto) 0.9 10^3/uL (0.2-0.9) 06/22/23 13:18 Eos # (Auto) 0.1 10^3/uL (0.0-0.8) 06/22/23 13:18 Baso # (Auto) 0.0 10^3/uL (0.0-0.1) 06/22/23 13:18 Nucleated RBC % (auto) 0 % 06/22/23 13:18 Nucleated RBCs # 0.0 /100WBC 06/22/23 13:18 Sodium 137 mmol/L (136-145) 06/22/23 13:18 Potassium 4.0 mmol/L (3.5-5.1) 06/22/23 13:18 Chloride 101 mmol/L (98-107) 06/22/23 13:18 Carbon Dioxide 26 mmol/L (22-29) 06/22/23 13:18 Anion Gap 14.0 (5-19) 06/22/23 13:18 BUN 6 mg/dL (6-20) 06/22/23 13:18 Creatinine 0.6 mg/dL (0.5-0.9) 06/22/23 13:18 GFR Calculation 113.1 mL/min (90-130) 06/22/23 13:18 Glucose 86 mg/dL (65-115) 06/22/23 13:18 Calculated Osmolality 281 mOsm/kg (285-295) L 06/22/23 13:18 Calcium 9.5 mg/dL (8.5-10.5) 06/22/23 13:18 Total Bilirubin 0.4 mg/dL (0.15-1.2) 06/22/23 13:18 AST 25 U/L (0-32) 06/22/23 13:18 ALT 43 U/L (0-33) H 06/22/23 13:18 Alkaline Phosphatase 83 U/L (35-105) 06/22/23 13:18 Total Protein 7.5 g/dL (6.6-8.7) 06/22/23 13:18 Albumin 4.1 g/dL (3.5-5.2) 06/22/23 13:18 Globulin 3.4 g/dL (1.3-4.6) 06/22/23 13:18 No radiology studies performed this visit Discharge Plan Discharge Patient Disposition: Home Clinical Impression: Headache Condition: Stable Prescriptions: No Action varenicline 0.5 mg (11)- 1 mg (42) tablets,dose pack See Rx Instructions PO PER PKG DIR Qty: 53 0RF Rx Instructions: PO PER PKG DIR sertraline [Zoloft] 100 mg tablet 100 mg PO DAILY Qty: 30 2RF trazodone 100 mg tablet 300 mg PO BEDTIME PRN (Reason: insomnia) Nicorette 4 mg gum 4 mg buccal Q1H PRN (Reason: Withdrawal Symptoms) nicotine 21 mg/24 hr patch 24 hour 1 patch transdermal DAILY PRN (Reason: Withdrawal Symptoms) Discharge Orders: Discharge ED (Routine); Ordered 06/22/23 Ordered By: Flor Vale Referrals: Andrew Mcallister MD [Primary Care Provider] - 1-3 days Discharge Diet: Advance as tolerated Discharge Activity: Resume usual activity Patient Instructions: General Headache (ED) Coding Level of Care Code ED Tag Stringer for Maria Victoria Calles
[2023-06-22 13:39] LABS: Basophils % 0.2 %; Eosinophils # 0.1 10^3/uL (0.0-0.8); Eosinophils % 1.3 %; Hematocrit 43.6 % (36-47); Lymphocytes # 2.5 10^3/uL (0.8-4.8); Lymphocytes % 24.8 %; Mean Corpuscular HGB Conc 32.8 g/dL (30-55); Mean Corpuscular Hemoglobin 30.6 pg (27-33); Mean Corpuscular Volume 93.4 fl (85-98); Mean Platelet Volume 10.2 fL (7.4-10.4); Monocytes # 0.9 10^3/uL (0.2-0.9); Monocytes % 8.6 %; Neutrophils # 6.44 10^3/uL (1.8-7.7); Neutrophils % 64.8 %; Nucleated Red Blood Cells % 0 %; Platelet Count 362 10^3/cmm (157-399); Red Blood Count 4.67 10^6/uL (3.85-5.65); Red Cell Distribution Width 12.4 % (12.1-15.1); White Blood Count 9.93 10^3/uL (3.29-11.43)
[2023-06-22] MEDS: diphenhydrAMINE 50 mg/mL SDV 1mL IVP (13:49)
[2023-06-22] MEDS: metoclopramide 5 mg/mL SDV 2 mL 10 MG IVP (13:50)
[2023-06-22 13:52] VITALS: BP 143/93; PULSE 59; RESP 17; O2SAT 95
[2023-06-22 13:55] LABS: Alanine Aminotransferase 43 U/L (0-33); Albumin Level 4.1 g/dL (3.5-5.2); Alkaline Phosphatase 83 U/L (35-105); Aspartate Amino Transferase 25 U/L (0-32); Blood Urea Nitrogen 6 mg/dL (6-20); Calcium 9.5 mg/dL (8.5-10.5); Carbon Dioxide 26 mmol/L (22-29); Chloride 101 mmol/L (98-107); Creatinine Clr Calc Pharmacy 163.2404; Globulin 3.4 g/dL (1.3-4.6); Glomerular Filtration Rate 113.1 mL/min (90-130); Glucose 86 mg/dL (65-115); Osmolality Calculated 281 mOsm/kg (285-295); Sodium 137 mmol/L (136-145); Total Bilirubin 0.4 mg/dL (0.15-1.2); Total Protein 7.5 g/dL (6.6-8.7)
[2023-06-22 14:40] VITALS: BP 126/90; PULSE 64; O2SAT 97
== END 2023-06-22 14:42 | disposition home or self-care (01) ==
PROVIDERS: Emergency Provider Emergency Medicine; PCP Family Medicine Adult Medicine
DX: R51.9 Headache, unspecified (principal); F17.210 Nicotine dependence, cigarettes, uncomplicated; F17.290 Nicotine dependence, other tobacco product, uncomplicated
CPT/HCPCS: 80053; 80061; 83036; 85025; 93005; 96374; 96375; 99284; J1200; J2765

== ENCOUNTER 2023-08-27 17:46 | Emergency (ER) | payer MEDICAID, SELFPAY ==
[2023-07-14 15:30] VITALS: BMI 50.2
[2023-08-27 17:54] VITALS: BP 174/108; PULSE 87; RESP 17; TEMP 36.7; O2SAT 94; BMI 49.4
[2023-08-27] MEDS: HYDROcodone-acetaminophen 10-325 mg Tablet 1 TAB PO (21:20)
--- NOTE | 2023-08-27 21:28 | W.ED.ABDPA2 ---
HPI - Abdominal Pain General: Chief Complaint: Abdominal Pain Stated Complaint: hemorrhoids Time Seen by Provider: 08/27/23 21:12 Source: patient Mode of arrival: ambulatory Limitations: no limitations History of Present Illness: 37-year-old female comes in with hemorrhoids. She has a history of hemorrhoids since age 17. No fever no chills no discharge no bleeding. Patient reports it has been so bad this past week but the sfrw-cgp-vuiyujk things are not working. pain so bad she gets nauseated. hasn't attempted BM last 2 days. Review of Systems General: Reports: 10 or more systems reviewed and unremarkable except in HPI and below PFSH ED PFS: Medical History Psychiatric care Chronic posttraumatic stress syndrome Delete, added in error History of genital warts 07/05/2018- per Dr. Herrera at [facility], pathology- hyperkeratotic, papillomatous epithelium, consistent with condylomata Aftercare following surgery of the genitourinary system Surgical History H/O arthroscopy of right knee H/O section x3 H/O dilation and curettage x3 S/P cholecystectomy 2006 H/O tubal ligation 02/03/2016- Performed after per patient by Dr. Mccloud at [facility] in [place], [place]. S/P tonsillectomy S/P hysterectomy 05/14/2020- laparoscopic-assisted vaginal hysterectomy performed by Dr. Herrera at [facility] Family History Mother Diabetes Cervical cancer Hypertension Grandmother Diabetes Heart disease maternal and paternal Hyperlipidemia maternal and paternal Thyroid disease paternal Breast cancer paternal great Stroke paternal and maternal Hypertension maternal and paternal Grandfather Diabetes maternal and paternal Heart disease maternal and paternal Hyperlipidemia maternal and paternal Hypertension maternal and paternal Father Heart disease Hyperlipidemia Hypertension Family/Other Diabetes paternal aunt Thyroid disease paternal aunt Cervical cancer maternal aunt Stroke paternal aunt Anesthesia complication maternal aunt Denies family history of Colon cancer Ovarian cancer Clotting disorder Bleeding disorder Uterine cancer Social History (Updated 06/22/23 @ 10:10 by Jessica Capone RN) Smoking and tobacco/nicotine status: current every day tobacco/nicotine user cigarettes Packs smoked per day: 10 Years cigarettes smoked: 20 [ Other cigarette details: less than 1 ppd] and e-cigarettes E-Cigarette Details: e-cigarette and with nicotine E-cig/vape details: disposible Quit status (tobacco/nicotine): considering quitting Second hand smoke exposure: Yes Alcohol intake: current Alcohol intake frequency: holidays/special occasions only Alcohol type: wine and hard liquor Substance/Drug Use: never Adopted: No Caregiver/support person: No Lives independently: Yes Household members: significant other and children Housing: Manufactured/Mobile home Marital status: Life Partner Number of children: 4 Number of grandchildren: 0 Highest education level completed: Some College, No Degree service: No Current occupational status: employed Current occupation: personal lines insurance agent Current occupational exposures/hazards: No Pets and animals: Yes Pets & animals: cat(s), dog(s), snake(s) and turtle(s) Pets & animal details: [employer] Leisure activites: reading Sexually active: Yes Do you think of yourself as: Straight/Heterosexual Current gender identity: Female Kamini/Orthodox: None Special kamini needs: No Agree to transfusion: Yes Female Reproductive History: Para: 4 Spontaneous abortions: Yes (X2) Physical Exam Const: COMMON NORMALS: no acute distress, average body habitus, patient oriented x3, healthy appearing, alert and well nourished GENERAL APPEARANCE: well kempt and well developed Eye: COMMON NORMALS: EOMs intact bilaterally and conjunctivae normal CONJUNCTIVA: Yes conjunctivae normal Neck/C-Spine: COMMON NORMALS: full ROM Chest: CHEST: Yes Symmetrical chest wall rise Resp: COMMON NORMALS: normal respiratory effort, No retractions and No use of accessory muscles Cardio: COMMON NORMALS: regular rate and regular rhythm RATE: regular rate RHYTHM: regular rhythm PERIPHERAL PULSES: other (Radial pulses 2+ and symmetric) GI: INSPECTION: No abdominal distension PALPATION: No Guarding due to palpation present (GI) and No Rebound tenderness present RECTAL EXAM: External hemorrhoid(s) present (9 O'clock position. present and tender, not fully thrombosed) and other (Nurse Anamaria in room with me as plasma table operator) : COMMON NORMALS: Yes no CVA tenderness BLADDER/KIDNEY EXAM: Yes no CVA tenderness Back/Pelvis: COMMON NORMALS: no CVA tenderness Extremity: COMMON NORMALS: normal to inspection, full ROM, capillary refill normal and no clubbing, cyanosis or edema Neuro: COMMON NORMALS: patient oriented x3 SENSORIUM/ORIENTATION: Yes alert Psych: APPEARANCE: Yes well kempt Skin: COMMON NORMALS: no rashes or lesions noted, no wounds, turgor normal and no jaundice GENERAL SKIN EXAM: no rashes or lesions noted and turgor normal Course Vital Signs: Vital signs: Vital Signs Temperature 98.1 F 08/27/23 17:54 Pulse Rate 87 08/27/23 17:54 Respiratory Rate 17 08/27/23 17:54 Blood Pressure 174/108 08/27/23 17:54 Pulse Oximetry 94 08/27/23 17:54 Oxygen Delivery Me thod Room Air 08/27/23 17:54 MDM - Abdominal Pain Medical Decision Making Severe hemorrhoids not improving with conservative treatment. Will prescribe Anusol and lidocaine jelly. Given [place] for pain tonight. Medical Records I reviewed the patient's medical records. No radiology studies performed this visit Discharge Plan Discharge Patient Disposition: Home Clinical Impression: External hemorrhoids, Anal or rectal pain Condition: Stable Prescriptions: New Anusol-HC 25 mg suppository 25 mg [place] BID 12 Days Qty: 24 0RF lidocaine 5 % cream 1 applic topical QID PRN (Reason: pain) Qty: 30 1RF Rx Instructions: apply to rectum for hemorrhoid's pain No Action topiramate 25 mg tablet 25 mg PO DAILY varenicline [Chantix] 1 mg tablet 1 mg PO BID Qty: 60 2RF nicotine 14 mg/24 hr patch 24 hour 1 patch transdermal DAILY Qty: 28 2RF sertraline [Zoloft] 100 mg tablet 200 mg PO DAILY Qty: 60 2RF trazodone 100 mg tablet 300 mg PO BEDTIME PRN (Reason: insomnia) Qty: 90 2RF Nicorette 4 mg gum 4 mg buccal Q1H PRN (Reason: Withdrawal Symptoms) Discharge Orders: Discharge ED (Routine); Ordered 08/27/23 Ordered By: Tony Hobbs Referrals: Linda Munoz FNP [Primary Care Provider] - Discharge Diet: Usual diet Discharge Activity: Resume usual activity Patient Instructions: Hemorrhoids (ED) Coding Level of Care Code ED Branch Office Administrator for Maria Victoria Calles
[2023-08-27] MEDS: lidocaine 4% cream 5 gm 1 APPLIC TOPICAL (21:41)
[2023-08-27 22:21] VITALS: BP 158/96; PULSE 79; RESP 14; TEMP 36.7; O2SAT 95
== END 2023-08-27 22:18 | disposition home or self-care (01) ==
PROVIDERS: Emergency Provider Emergency Medicine; PCP Nurse Practitioner
DX: K64.4 Residual hemorrhoidal skin tags (principal); K62.89 Other specified diseases of anus and rectum; F17.290 Nicotine dependence, other tobacco product, uncomplicated; F17.210 Nicotine dependence, cigarettes, uncomplicated
CPT/HCPCS: 99283

== ENCOUNTER 2024-05-27 18:53 | Emergency (ER) | payer SELFPAY ==
[2023-07-14 15:30] VITALS: BMI 50.2
[2024-05-27 18:55] VITALS: BP 198/105; PULSE 93; RESP 16; TEMP 36.7; O2SAT 97; BMI 52.1
[2024-05-27 19:10] VITALS: BP 162/114; PULSE 77; O2SAT 97
[2024-05-27] MEDS: fluorescein 1 mg Strip EYE-LEFT (19:29)
[2024-05-27] MEDS: erythromycin Op Oint 1 gm 1 APPLIC EYE-LEFT (19:29)
[2024-05-27] MEDS: tetracaine 0.5% Op Soln 4 mL Btl 1 DROP EYE-LEFT (19:30)
[2024-05-27] MEDS: acetaminophen 500 mg Tablet 1000 MG PO (19:30)
[2024-05-27] MEDS: naproxen 500 mg Tablet PO (19:30)
[2024-05-27] MEDS: diphenhydrAMINE 50 mg/mL SDV 1mL IM (19:32)
[2024-05-27] MEDS: prochlorperazine 10 mg/2 mL Inj IM (19:32)
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
[2024-05-27] MEDS: tetanus-dipt-pertussis 0.5 mL SDV IM (20:29)
[2024-05-27 21:17] VITALS: BP 131/75; PULSE 67; O2SAT 94
== END 2024-05-27 21:20 | disposition home or self-care (01) ==
PROVIDERS: Emergency Provider Emergency Medicine; PCP Nurse Practitioner
DX: G43.909 Migraine, unspecified, not intractable, without status migrainosus (principal); T20.10XA Burn of first degree of head, face, and neck, unspecified site, initial encounter; X10.2XXA Contact with fats and cooking oils, initial encounter; F17.210 Nicotine dependence, cigarettes, uncomplicated; Z23 Encounter for immunization
CPT/HCPCS: 90471; 90715; 96372; 99284; J0780; J1200; J9999